=== PATIENT | male | born 1975 | race Caucasian/White ===

== ENCOUNTER 2020-06-10 12:58 | Emergency (ER) | payer OTHER ==
[~2020-06-10] VITALS: Ht 182.9 cm; Wt 93.0 kg
[2020-06-10] MEDS ORDERED: CELEBREX200MG PO (14:16)
== END 2020-06-10 14:37 | disposition home or self-care (01) ==
LOC: ER 12:58
DX: S46.211A Strain of muscle, fascia and tendon of other parts of biceps, right arm, initial encounter (principal); X50.0XXA Overexertion from strenuous movement or load, initial encounter; Y93.18 Activity, surfing, windsurfing and boogie boarding; Y92.89 Other specified places as the place of occurrence of the external cause; Y99.8 Other external cause status

== ENCOUNTER 2020-06-21 13:02 | Day surgery (SDC) | payer OTHER ==
[~2020-06-21 13:02] MED LIST: CELEBREX200MG PO
== END 2020-06-21 18:00 | disposition home or self-care (01) ==
LOC: CIR.AMB 13:02
PROVIDERS: ATTEND Orthopaedic Surgery
DX: S46.121A Laceration of muscle, fascia and tendon of long head of biceps, right arm, initial encounter (principal); Z20.828 Contact with and (suspected) exposure to other viral communicable diseases